=== PATIENT | male | born 1965 | race Caucasian/White ===

== ENCOUNTER 2021-08-16 10:30 | Emergency (ER) | payer MEDICARE ==
[2021-08-16 10:38] VITALS: BP 149/93; PULSE 77; TEMP 99.1; BMI 32.5
[2021-08-16] MEDS ORDERED: ALBUTEROL SO4 2.5/IPRATROPIUM 0.5 INH SOL 3 ML VIAL.NEB. NEB ONE ×2 (10:49→11:04)
[2021-08-16 11:22] LABS: BASO % 0.3 % (0-2.0); EOS % 6.8 % (0-4.5); HEMATOCRIT 42.7 % (35.4-49); HEMOGLOBIN 14.5 G/dL (11.7-16.9); LYMPH % 35.2 % (8-40); MCH 32.1 pg (25.7-33.7); MCHC 33.9 g/dl (32.0-35.9); MEAN CELL VOLUME 94.5 fl (80-96); MEAN PLT VOLUME 7.6 fl (7.5-11.1); MONO % 8.5 % (3.8-10.2); NEUT % 49.2 % (42.8-82.8); PLATELET COUNT 313.7 10^3/uL (134-434); RBC 4.52 10^6/uL (4.00-5.60); RDW 15.2 % (11.9-15.9); WHITE BLOOD COUNT 7.7 10^3/uL (4.0-10.8)
[2021-08-16 11:27] LABS: BILIRUBIN,TOTAL 0.7 mg/dl (0.2-1); CALCIUM 8.9 mg/dl (8.5-10); CREATININE 0.8 mg/dl (0.55-1.3); TOT PROT 7.6 g/dl (6.4-8.2)
[2021-08-16] MEDS ORDERED: ALBUTEROL SO4 HFA INHALER IH ONE ×2 (11:46→11:49)
[2021-08-16 14:24] LABS: N-TERMINAL BNP 36.6 pg/ml (5-125)
== END 2021-08-16 12:05 | disposition home or self-care (01) ==
LOC: FER 10:30
PROC: 3E0F7GC Introduction of Other Therapeutic Substance into Respiratory Tract, Via Natural or Artificial Opening (ICD-10-PCS; principal; 2021-08-16)
DX: R06.02 Shortness of breath (principal)
CPT/HCPCS: 36415; 71046-TC-FY; 80053; 83690; 83880; 84484; 85025; 93005; 99285-25